=== PATIENT | female | born 1980 | race Caucasian/White ===

== ENCOUNTER 2016-04-11 07:21 | Emergency (ER) | payer SELFPAY ==
[~2016-04-11] VITALS: Ht 162.6 cm; Wt 101.8 kg
[2016-04-11 07:25] VITALS: BP 121/78
[2016-04-11] MEDS ORDERED: PRILOSEC20 MG PO (09:47)
[2016-04-11] MEDS ORDERED: TYLENOL WITH C1 EACH PO (09:52)
== END 2016-04-11 09:58 | disposition home or self-care (01) ==
LOC: EME 07:21
DX: S80.01XA Contusion of right knee, initial encounter (principal); X50.9XXA Other and unspecified overexertion or strenuous movements or postures, initial encounter; Y93.89 Activity, other specified; F17.200 Nicotine dependence, unspecified, uncomplicated
CPT/HCPCS: 73564; 99281; 99283

== ENCOUNTER 2016-08-11 08:42 | Day surgery (SDC) | payer OTHER ==
[~2016-08-11] VITALS: Ht 162.6 cm; Wt 93.0 kg
[~2016-08-11 08:42] MED LIST: PRILOSEC20 MG PO; TYLENOL WITH C1 EACH PO
[2016-08-11 09:10] VITALS: BP 115/78
[2016-08-11] MEDS ORDERED: MOTRIN800 MG PO (12:28)
[2016-08-11 13:18] VITALS: BP 130/77
[2016-08-11 14:17] VITALS: BP 125/86
== END 2016-08-11 14:21 | disposition home or self-care (01) ==
LOC: SDC 08:42
PROC: 0UBC7ZX Excision of Cervix, Via Natural or Artificial Opening, Diagnostic (ICD-10-PCS; principal; 2016-08-11)
DX: K21.9 Gastro-esophageal reflux disease without esophagitis (principal); D06.9 Carcinoma in situ of cervix, unspecified; F17.210 Nicotine dependence, cigarettes, uncomplicated; Z80.1 Family history of malignant neoplasm of trachea, bronchus and lung
CPT/HCPCS: 88305; 88307; J1100; J1885; J2250; J2405; J3010